=== PATIENT | female | born 1990 | race Two or more races ===

== ENCOUNTER 2017-01-26 14:14 | Emergency (ER) | payer OTHER ==
[2017-01-26] MEDS ORDERED: IOPAMIDOL 300 (61%) 100 ML VIAL IV ONE (14:15)
[2017-01-26 15:27] LABS: HCG,QUALITATIVE URINE NEGATIVE
[2017-01-26 15:28] LABS: URINE BILIRUBIN NEGATIVE (NEGATIVE); URINE BLOOD 3+ (NEGATIVE); URINE GLUCOSE (UA) NEGATIVE (NEGATIVE); URINE LEUKOCYTE ESTERASE TRACE (NEGATIVE); URINE NITRITE NEGATIVE (NEGATIVE); URINE PROTEIN NEGATIVE (NEGATIVE); URINE UROBILINOGEN NORMAL (0-1 mg/dl)
[2017-01-26 15:35] LABS: URINE APPEARANCE CLEAR; URINE COLOR YELLOW
[2017-01-26 15:57] LABS: CALCIUM 9.4 mg/dL (8.6-10.3)
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
[2017-01-26 16:08] LABS: URINE BACTERIA RARE; URINE EPITHELIAL CELLS 0-1 /hpf; URINE RBC 0-1 /hpf; URINE WBC 0-1 /hpf
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
[2017-01-26] MEDS ORDERED: ACETAMINOPHEN 500 MG TABLET ONE (16:28)
[2017-01-26] MEDS ORDERED: KETOROLAC TROMETHAMINE 15 MG/ML VIAL ONE (16:28)
== END 2017-01-26 16:47 | disposition home or self-care (01) ==
LOC: ED 14:14
DX: R51 Headache (principal); M54.2 Cervicalgia; R10.9 Unspecified abdominal pain; V43.52XA Car driver injured in collision with other type car in traffic accident, initial encounter; Y92.410 Unspecified street and highway as the place of occurrence of the external cause
CPT/HCPCS: 81025; 80048; 81001; 74177; 72125; 70450; 99283; 96374; 36415; 99284; J1885; A9270; Q9967